=== PATIENT | female | born 1940 | race Caucasian/White ===

== ENCOUNTER 2023-05-30 09:12 | Day surgery (SDC) | payer OTHER ==
[2023-05-25 10:03] VITALS: BMI 23.6
[2023-05-30] MEDS: TROPICAMIDE 1% OPHTH SOLN 15 ML BOTTLE ONE ×3 (09:35→09:45)
[2023-05-30] MEDS: CIPROFLOXACIN 0.3% EYE DROPS 5 ML BOTTLE ONE ×3 (09:35→09:45)
[2023-05-30] MEDS: PHENYLEPHRINE 2.5% OPTHALMIC DROP 2ML BOTTLE ONE ×3 (09:35→09:45)
[2023-05-30] MEDS: CYCLOPENTOLATE 2% OPHTH SOLN 2 ML BOTTLE ONE ×3 (09:35→09:45)
[2023-05-30] MEDS ORDERED: ONDANSETRON 4 MG/2 ML VIAL ONE (10:17)
[2023-05-30] MEDS ORDERED: MIDAZOLAM HCL 2 MG/2 ML SINGLE DOSE VIAL ONE (10:18)
[2023-05-30] MEDS ORDERED: CARBACHOL 0.01% INTRA-OCULAR 1.5 ML VIAL ONE (10:56)
[2023-05-30] MEDS ORDERED: NEO/POLYMYX B SULF/DEXAMETH OPHTHALMIC 5ML BOTTLE ONE (10:56)
[2023-05-30] MEDS ORDERED: TETRACAINE 0.5% OPHTH SOLN 2 ML BOTTLE ONE (10:56)
[2023-05-30] MEDS ORDERED: BSS (NA/CA/MG/K) BALANCED SALT SOLUTION OPHTH SOLN 15 ML BOTTLE ONE (10:56)
[2023-05-30] MEDS ORDERED: LIDOCAINE HCL/PF 1% SDV 5ML VIAL ONE (10:56)
[2023-05-30 11:17] VITALS: BP 132/71; PULSE 67; RESP 18; TEMP 97.6
== END 2023-05-30 11:55 | disposition home or self-care (01) ==
LOC: FASU 09:12
PROVIDERS: ATTEND Ophthalmology
PROC: 08RJ3JZ Replacement of Right Lens with Synthetic Substitute, Percutaneous Approach (ICD-10-PCS; principal; 2023-05-30 10:46)
DX: H26.8 Other specified cataract (principal)
CPT/HCPCS: 66984; V2632